=== PATIENT | male | born 1970 | race Caucasian/White ===

== ENCOUNTER → 2024-04-06 11:42 | Outpatient (REF) | payer OTHER, SELFPAY | LOC: RAD 11:42 | PROVIDERS: ATTENDING PHYSICIAN Internal Medicine Cardiovascular Disease; FAMILY PHYSICIAN Family Medicine; REFERRING PHYSICIAN Thoracic Surgery (Cardiothoracic Vascular Surgery) | DX: Z01.810 Encounter for preprocedural cardiovascular examination (principal); I25.10 Atherosclerotic heart disease of native coronary artery without angina pectoris | CPT/HCPCS: 70496; 70498; Q9967 ==

== ENCOUNTER 2024-04-10 04:55 | Inpatient (IN) | payer OTHER, SELFPAY ==
[2024-04-02 12:08] VITALS: BMI 35.7
[2024-04-02 12:55] LABS: % Basophils 0.9 % (0-2); % Eosinophils 4.7 % (0-6); % Immature Granulocytes 0.3 % (0-0.5); % Lymphocytes 18.9 % (20.5-51.1); % Monocytes 8.8 % (1.7-9.3); % Neutrophils 66.4 % (42.2-75.2); Absolute Basophils 0.1 10^3/uL (0-0.2); Absolute Eosinophils 0.4 10^3/uL (0-0.7); Absolute Lymphocytes 1.8 10^3/uL (1.2-3.4); Absolute Monocytes 0.8 10^3/uL (0.1-0.6); Absolute Neutrophils 6.2 10^3/uL (1.4-6.5); Hematocrit 37.1 % (39.0-52.0); Hemoglobin 12.3 g/dL (13.0-18.0); Mean Corp Hgb Conc. 33.2 g/dL (33.0-37.0); Mean Corpuscular Hgb 27.5 pg (27.0-31.0); Mean Platelet Volume 10.2 fL (7.4-10.4); Nucleated Red Blood Cells % 0 % (-); Platelet Count 294 10^3/uL (130-400); Red Blood Cell Count 4.47 10^6/uL (4.70-6.10); Red Cell Dist. Width 13.2 % (11.5-14.5); White Blood Cell Count 9.3 10^3/uL (4.8-10.8)
[2024-04-02 13:11] LABS: ALT (SGPT) 29 U/L (0-50); AST (SGOT) 30 U/L (17-59); Albumin 4.7 g/dl (3.5-5.0); Alkaline Phosphatase 101 U/L (38-126); Blood Urea Nitrogen 30 mg/dl (9-20); Calcium 9.3 mg/dl (8.4-10.2); Carbon Dioxide 30 mmol/L (22-30); Chloride 99 mmol/L (98-107); Direct Bilirubin 0.1 mg/dl (0.0-0.4); Estimated Creatinine Clearance 53 ml/min; Glucose 207 mg/dl (70-99); Potassium 4.5 mmol/L (3.5-5.1); Sodium 141 mmol/L (135-145); Total Bilirubin 0.4 mg/dl (0.2-1.3); Total Protein 7.6 g/dl (6.3-8.2)
[2024-04-02 13:13] LABS: INR 0.95; PT 13.2 Sec (11.4-14.6)
[2024-04-02 13:14] LABS: APTT 31.3 Sec (23.4-35.0)
--- NOTE | 2024-04-02 13:23 | CM ---
Met with Mr. Frye and his son in [facility]. Prior to admission he resides alone in a second floor apartment. He has two steps to enter the home and then twelve steps to get to the second floor apartment. He states prior to admission he was
independent with ambulation and adls. He states he does not have any DME in the home. He states he has a prescription plan and uses [facility]. He states he can call his son and neighbors if he will needs any assistance when he goes home.
The discharge plan is to return home with his son and neighbors to check on him and a home visit by the Transitional Care Nurse when medically stable.
We reviewed pre-op and post-op routines. We reviewed the shower instructions. He has the soap, written instructions and the Cardiothoracic Surgery Educational Booklet. We also reviewed restrictions including sternal precautions and driving
restrictions. We discussed a home visit by the Transitional Care Nurse. He is agreeable to a home visit. The plan is to CABG on Wednesday, April 10, 2024.
[2024-04-02 13:40] LABS: Urine Albumin 1+ (Neg - Trace); Urine Bilirubin Negative (Negative); Urine Character Clear (Clear); Urine Color Yellow; Urine Glucose Trace (Negative); Urine Ketone Negative (Negative); Urine Leukocyte Negative (Negative); Urine Nitrite Negative (Negative); Urine Occult Blood Negative (Negative); Urine Urobilinogen Negative (Neg - 1+)
[2024-04-02 13:59] LABS: Urine Bacteria Few (Negative); Urine Squamous Cell 0-2 /LPF (Few)
[2024-04-02 14:00] LABS: Urine White Cell 0-2 /HPF (0-5)
[2024-04-02 14:27] LABS: Glycohemoglobin (HgbA1c) 7.4 % (4.0-5.6)
[2024-04-10 05:05] VITALS: BP 172/97
[2024-04-10 05:09] VITALS: BP 177/92
[2024-04-10 05:15] LABS: Glucose - Point of Care 218 mg/dl (70-99)
[2024-04-10 05:30] VITALS: BP 177/92; BMI 33.6
[2024-04-10] MEDS: LOPRESSOR 25 MG PO (05:37)
[2024-04-10] MEDS: BACTROBAN 2% OINTMENT 1 APPLIC NASAL ×2 (05:38→20:06)
[2024-04-10] MEDS: MAGNESIUM OXIDE 500 MG PO (05:38)
[2024-04-10] MEDS: PROTONIX 40 MG PO (05:38)
[2024-04-10] MEDS: ANCEF 10 IV ×2 (07:00→13:30)
[2024-04-10 07:25] LABS: ACT+ - POC 98 Seconds (82-134)
[2024-04-10 08:51] LABS: Urine Albumin 2+ (Neg - Trace); Urine Bilirubin Negative (Negative); Urine Character Clear (Clear); Urine Color Yellow; Urine Glucose 1+ (Negative); Urine Ketone Negative (Negative); Urine Leukocyte Negative (Negative); Urine Nitrite Negative (Negative); Urine Occult Blood 2+ (Negative); Urine Urobilinogen Negative (Neg - 1+)
[2024-04-10 09:08] LABS: Urine Hyaline Cast 0-2 /LPF (0-2)
[2024-04-10 09:09] LABS: Urine Bacteria Moderate (Negative)
[2024-04-10 10:41] LABS: ACT+ - POC 637 Seconds (82-134)
[2024-04-10 11:02] LABS: B.E. - POC 2.6 mmol/L; Glucose - POC 223 mg/dl (70-99); HCO3 - POC 27 mmol/L (21-28); Hematocrit - POC 37 % PCV (42-52); Hemodilution- POC Yes; Hemoglobin Calculated - POC 12.7; Ionized Calcium - POC 1.12 mmol/L (1.15-1.33); O2 Saturation %Calculated-POC 99.9 % (94-98); PCO2 - POC 38 mmHg (35-48); PO2 - POC 265 mmHg (83-108); POC Comment PRE; Potassium - POC 3.9 mmol/L (3.5-5.1); Sodium - POC 138 mmol/L (136-145); Specimen Type - POC Arterial; pH - POC 7.46 (7.35-7.45)
[2024-04-10 11:13] LABS: ACT+ - POC 538 Seconds (82-134)
[2024-04-10 11:39] LABS: B.E. - POC 5.3 mmol/L; Glucose - POC 233 mg/dl (70-99); HCO3 - POC 31 mmol/L (21-28); Hematocrit - POC 26 % PCV (42-52); Hemodilution- POC Yes; Hemoglobin Calculated - POC 8.7; Ionized Calcium - POC 1.07 mmol/L (1.15-1.33); O2 Saturation %Calculated-POC 99.9 % (94-98); PCO2 - POC 52 mmHg (35-48); PO2 - POC 322 mmHg (83-108); POC Comment CPB; Sodium - POC 137 mmol/L (136-145); Specimen Type - POC Arterial; pH - POC 7.38 (7.35-7.45)
[2024-04-10 11:49] LABS: Glucose - POC 192 mg/dl (70-99); HCO3 - POC 27 mmol/L (21-28); Hematocrit - POC 27 % PCV (42-52); Hemodilution- POC Yes; Hemoglobin Calculated - POC 9.2; Ionized Calcium - POC 1.05 mmol/L (1.15-1.33); O2 Saturation %Calculated-POC 96.7 % (94-98); PCO2 - POC 38 mmHg (35-48); PO2 - POC 83 mmHg (83-108); POC Comment CPB; Potassium - POC 3.9 mmol/L (3.5-5.1); Sodium - POC 138 mmol/L (136-145); Specimen Type - POC Arterial; pH - POC 7.46 (7.35-7.45)
[2024-04-10 11:50] LABS: ACT+ - POC 523 Seconds (82-134)
[2024-04-10 12:19] LABS: B.E. - POC 2.1 mmol/L; Glucose - POC 194 mg/dl (70-99); HCO3 - POC 27 mmol/L (21-28); Hematocrit - POC 27 % PCV (42-52); Hemodilution- POC Yes; Hemoglobin Calculated - POC 9.1; Ionized Calcium - POC 1.07 mmol/L (1.15-1.33); O2 Saturation %Calculated-POC 99.9 % (94-98); PCO2 - POC 41 mmHg (35-48); PO2 - POC 260 mmHg (83-108); POC Comment CPB; Potassium - POC 4.1 mmol/L (3.5-5.1); Sodium - POC 139 mmol/L (136-145); Specimen Type - POC Arterial; pH - POC 7.42 (7.35-7.45)
--- NOTE | 2024-04-10 12:23 | CM ---
pt in OR today, cm to follow.
[2024-04-10 12:32] LABS: ACT+ - POC 517 Seconds (82-134)
[2024-04-10 12:57] LABS: B.E. - POC 1.4 mmol/L; Glucose - POC 140 mg/dl (70-99); HCO3 - POC 27 mmol/L (21-28); Hematocrit - POC 28 % PCV (42-52); Hemodilution- POC Yes; Hemoglobin Calculated - POC 9.6; Ionized Calcium - POC 1.09 mmol/L (1.15-1.33); O2 Saturation %Calculated-POC 98.2 % (94-98); PCO2 - POC 44 mmHg (35-48); PO2 - POC 110 mmHg (83-108); POC Comment WARM; Potassium - POC 4.1 mmol/L (3.5-5.1); Sodium - POC 140 mmol/L (136-145); Specimen Type - POC Arterial; pH - POC 7.39 (7.35-7.45)
[2024-04-10 13:12] LABS: ACT+ - POC 470 Seconds (82-134)
[2024-04-10 13:30] LABS: B.E. - POC 1.3 mmol/L; Glucose - POC 114 mg/dl (70-99); HCO3 - POC 25 mmol/L (21-28); Hematocrit - POC 26 % PCV (42-52); Hemodilution- POC Yes; Hemoglobin Calculated - POC 8.7; Ionized Calcium - POC 1.04 mmol/L (1.15-1.33); PCO2 - POC 37 mmHg (35-48); PO2 - POC 504 mmHg (83-108); POC Comment CPB; Potassium - POC 3.8 mmol/L (3.5-5.1); Sodium - POC 140 mmol/L (136-145); Specimen Type - POC Arterial; pH - POC 7.44 (7.35-7.45)
[2024-04-10 13:33] LABS: ACT+ - POC 148 Seconds (82-134)
[2024-04-10 13:56] LABS: ACT+ - POC 115 Seconds (82-134)
--- NOTE | 2024-04-10 14:12 | W.CVOR.SURPR ---
CVOR Surgeon Immed Pre Op
-
I have examined this patient prior to performance of the scheduled procedure.
The patient's condition is unchanged from the time of the dictated/written History and
Physical and the patient is able to undergo the scheduled procedure.
--- NOTE | 2024-04-10 14:13 | W.IMMPOSTOP ---
Addendum entered and electronically signed by Erich Greene MD 04/10/24 15:34:
[id number]
Original Note:
Surgical Immed Post Op Note
-
CARDIAC SURGERY OPERATIVE NOTE:
Preoperative Dx:
MVCAD
Postoperative Dx:
Same
Procedures:
1) Median sternotomy
2) Endoscopic harvest/prep of L RA
3) Endoscopic harvest/prep of RLE GSV
4) CABG x 4 (MIGUEL to LAD, GSV to D, RA to OM, GSV to PDA)
Surgeon:
Erich Greene M.D.
Assistants:
Desire RaoA.-CJoycelyn; endoscopic harvest/prep of L RA; international first officer throughout
Denilson Sarmiento.-CJoycelyn; endoscopic harvest/prep of RLE GSV
Noah Del Angel PJoycelynA.-C.; closure ([id number])
Anesthesia:
Deon Huertas M.D. and Gabriel Back, C.R.N.A.
Perfusion:
Mauro GonzalesCJoycelynP.; XC: 83min, CPB: 135min
Findings:
MIGUEL was very healthy conduit w/ extremely brisk blood flow; ELD 3.00mm
GSV was healthy conduit w/ normal reeves; ELD 3.50mm
RA was good conduit w/ minor atheromatous changes in reeves; ELD 3.25mm
LAD was visible on the epicardial surface, ELD 2.5mm at midpoint anastomosis; brisk flow w/ release of MIGUEL bulldog clamp
D was visible on the epicardial surface, ELD 2.5mm
OM was visible on the epicardial surface, scattered calcifications throughout, ELD 2.5mm
PDA was visible on the epicardial surface, ELD 2.5mm
Good flow in all grafts
Ascending aorta de-aired prior to removal of partial clamp w/ back bleeding from RA to OM and GSV to D
LUIS: LVEF 60-65%, no RWMA, RV normal, valves grossly normal
Implants:
CT x 4 (B/L pleural, inferior mediastinal, superior mediastinal)
Sternal wires x 7
Sternal 'X' plate w/ 4 - 14mm and 4 - 16mm screws
Sternal 'Square' plate w/ 4 - 12mm screws
Transfusion:
None
Complications:
None
Condition:
57 isoelectric sinus (0.3/-0.2); 101/59; CVP 9; 100%
GTTS: levophed 2, insulin 1, precedex 0.5, cardizem 2
Stable/guarded to CVICU
[2024-04-10 14:48] LABS: Glucose - Point of Care 95 mg/dl (70-99)
[2024-04-10 14:51] VITALS: BP 97/74
[2024-04-10 15:00] LABS: B.E. -2.5 mmol/L; HCO3 23.2 mmol/L (21-28); Ionized Calcium 1.19 mMOL/L (1.15-1.33); O2 Saturation % 99.7 % (94-98); PCO2 43 mmHg (35-48); PO2 224 mmHg (83-108); Potassium 3.6 mMOL/L (3.5-5.1); Sodium 137 mMOL/L (136-145); pH 7.34 (7.35-7.45)
[2024-04-10 15:01] LABS: Hematocrit 28.6 % (39.0-52.0); Hemoglobin 9.7 g/dL (13.0-18.0); Platelet Count 189 10^3/uL (130-400)
--- NOTE | 2024-04-10 15:15 | CON.INTV ---
Consultation
Consultation Request
Date/Time Consultation Requested: 04/10/2024
Date/Time Consultation Performed: 04/10/2024
Requesting Provider: Dr. Greene
Performing Provider: Dr. Abe Conte
Reason for Consultation: Status post coronary artery bypass
Medical History
-
History of Present Illness:
53-year-old man with past medical history significant for hypertension, diabetes, peripheral vascular disease electively admitted for revascularization.
Underwent coronary artery bypass on 04/10/2024 without complication.
Currently in the critical care unit, intubated, on mechanical ventilation, sedated.
ECW records reviewed.
Chest tube in place without significant air leak or drainage.
Comfortable on current mechanical ventilation settings
Past Medical History
Past Medical History: Other (See assessment and plan)
Social History
Tobacco: Former Smoker (Quit 10 years ago)
Alcohol: Other (Rare)
Personal: Single
Living: Alone
Family History
Family History: Unable to Obtain
Allergies / Home Medications
Allergies
Allergy/AdvReac Type Severity Reaction Status Date / Time
erythromycin base Allergy Rash Verified 03/31/24 10:05
Home Medications
�Medication �Instructions �Recorded �Confirmed �Last Taken �Type
Medical Cannibus 1 dose PO PRN PRN pain 03/31/24 04/10/24 04/09/24 12:00 History
acebutolol 400 mg capsule 400 mg PO BID 03/31/24 04/10/24 04/09/24 08:00 History
aspirin 81 mg capsule 81 mg PO DAILY 03/31/24 04/10/24 04/09/24 08:00 History
chlorthalidone 25 mg tablet 25 mg PO DAILY 03/31/24 04/10/24 04/09/24 08:00 History
clonidine HCl 0.1 mg tablet 0.1 mg PO DAILY 03/31/24 04/10/24 04/09/24 08:00 History
dulaglutide 3 mg/0.5 mL 3 mg SC QWEEK 03/31/24 04/10/24 03/27/24 History
subcutaneous pen injector
(Trulicity)
hydroxyzine HCl 50 mg tablet 50 mg PO HS PRN sleep 03/31/24 04/10/24 04/09/24 21:00 History
minoxidil 10 mg tablet 15 mg PO BID 03/31/24 04/10/24 04/02/24 History
rosuvastatin 40 mg tablet 40 mg PO DAILY 03/31/24 04/10/24 04/09/24 21:00 History
Review of Systems
-
Unable to Obtain full review of systems at this time due to: Patient Intubation
Vitals / Labs / Diagnostic Testing
Vital Signs
Temp Pulse Resp BP Pulse Ox
97.8 F 55 18 177/92 99
04/10/24 05:30 04/10/24 05:37 04/10/24 05:30 04/10/24 05:37 04/10/24 05:30
Laboratory Results
04/10/24
14:42
pH 7.34 L
pCO2 43
pO2 224 H
HCO3 23.2
O2 Delivery Level
Diagnostic Testing:
Physical Exam
-
HEENT: Normocephalic and Other (ET tube in place without secretion)
Cardiovascular: S1/S2
Respiratory: Non-Labored Respirations and Other ( Chest tube in place without air leak or significant drainage.)
GI: Soft and Non Distended
Neurology: Other (Sedated, on mechanical ventilation.)
Skin: Warm
Assessment
-
Status post coronary artery bypass 04/10/[address] Greene
Postoperative mechanical ventilation
Postoperative anemia
Conditions present prior admission:
Renal artery atherosclerosis
Aortic aneurysm
Hypertension
Chronic kidney disease
Carotid artery disease
Coronary artery disease
Diabetes
Former smoker quit 10 years ago
Assessment and plan:
His doing well postop-currently on mechanical ventilation and appears comfortable.
ABG reviewed: Adequate oxygenation and ventilation.
Continue SIMV mode with no change
Spontaneous breathing trial per protocol once sedation wears off.
Anemia noted-no evidence of acute bleeding
Follow H&H serially
Hemodynamics -acceptable on low-dose Levophed. Wean off as able.
Patient with chronic kidney disease, follow renal function
Follow urinary output-currently adequate.
Continue hemodynamic support
Chest tube with no excessive drainage-no air leak.
Chest x-ray reviewed: With no pneumothorax or fluid collections. Low lung volumes. Pulmonary vascular congestion
Remain nothing by mouth
Head of the bed elevation
Glycemic control per protocol
DVT prophylaxis when safe from the surgical perspective.
Critical care statement: A total of 32 minutes of critical care time was provided for this patient today. This includes management of unstable vital signs, evaluation of the patient at bedside, reviewing the patient's pertinent medical records
including ventilator settings, arterial blood gases, radiographs, microbiology, laboratory evaluations and discussion with primary team, critical care nursing, and respiratory therapy.
[2024-04-10 15:16] LABS: APTT 28.9 Sec (23.4-35.0); INR 1.45; PT 17.9 Sec (11.4-14.6)
[2024-04-10 15:19] LABS: Blood Urea Nitrogen 26 mg/dl (9-20); Estimated Creatinine Clearance 59 ml/min; Glucose 98 mg/dl (70-99); Magnesium 2.8 mg/dl (1.6-2.3)
--- NOTE | 2024-04-10 15:30 | PTCARENOTE ---
Pt received from CVOR at 1440; Sedated and intubated; NSR rhythm on monitor; VSS; DP and radial pulses present; Lungs diminished at bases; ETT size 8 positioned and secured at 23 cm right lip; Ventilator settings SIMV 14/500/5/5 FiO2 60%; CTx34 to
-20 cm wall suction draining bloody drainage - no air leak, tidaling, or crepitus noted; Hypoactive BS; Chavez catheter in place draining clear, yellow urine; Sternal incision glued, approximated, and OSTOMY NURSE, Right radial incision site glued,
approximated, and brooke wrapped, right leg incision glued, approximated, and brooke wrapped; Right A-line in place, RIJ Cordis - all lines zeroed and leveled; #18 PIV present in right forearm; Levo/insulin/precedex/Cardizem infusing - see nursing
flowsheets for further details; see nursing documentation for further details.
[2024-04-10 16:00] LABS: Glucose - Point of Care 149 mg/dl (70-99)
[2024-04-10 16:25] LABS: B.E. -2.3 mmol/L; HCO3 23.2 mmol/L (21-28); PCO2 42 mmHg (35-48); PO2 163 mmHg (83-108); pH 7.35 (7.35-7.45)
--- NOTE | 2024-04-10 16:30 | PTCARENOTE ---
1630 extubated to 6L nc
[2024-04-10] MEDS: DILAUDID 0.5 MG IV (16:39)
--- NOTE | 2024-04-10 16:43 | W.PN.CD ---
Today's Communication / Plan
-
Wean vasopressors as able
Continue postop day #1 protocol.
Impression / Plan
-
CAD status post X 4 (L TRICIA to LAD, G SVG to diagonal, RA 2 OM, GSV to PDA) POD #0
On a very low-dose of Levophed and insulin drip. Small dose of IV diltiazem.
Continue to wean vasopressors as able.
OMT when able
Hypertension: Chronic, resume agents when able.
Renal artery arthrosclerosis chronic
Diabetes chronic
Obesity: On Trulicity
Subjective:
Eyes open to name but intubated and sedated
IntraOp LUIS 04/10/2024 CONCLUSIONS
Normal left ventricular systolic function with no wall motion abnormalities.
LVEF 60-65%.
Normal right ventricular systolic function.
The cardiac valves are grossly normal in structure and function.
Grade III atheromatous disease of the aortic arch and descending thoracic
aorta.
Physical Exam
Vital Signs/Labs
Vital Signs
Temp Pulse Resp BP Pulse Ox
97.4 F 68 14 97/74 100
04/10/24 15:00 04/10/24 16:15 04/10/24 16:15 04/10/24 14:51 04/10/24 16:00
04/09/24 04/10/24 04/11/24
06:59 06:59 06:59
Actual Weight 103 kg
04/10/24 14:42
PT 17.9 Sec (11.4-14.6) H 04/10/24 14:42
INR 1.45 04/10/24 14:42
APTT 28.9 Sec (23.4-35.0) 04/10/24 14:42
Magnesium 2.8 mg/dl (1.6-2.3) H 04/10/24 14:42
Physical Exam
Constitutional: No acute distress
Cardiovascular: Rhythm & rate is regular, Systolic murmur absent and Diastolic murmur absent
Respiratory: Respiratory effort normal and Other (Ventilator sounds)
GI: Soft
Data Reviewed
-
Date of Service: April 10, 2024
EKG: Tracing Personally Visualized and interpreted (Sinus bradycardia)
[2024-04-10] MEDS: ZOFRAN 4 MG IV (17:08)
[2024-04-10 17:15] VITALS: BP 70/57
[2024-04-10] MEDS: OFIRMEV 100 IV (17:28)
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
[2024-04-10 17:32] LABS: Glucose - Point of Care 114 mg/dl (70-99)
[2024-04-10] MEDS: NOVOLOG FLEXPEN SC ×2 (18:29→18:30)
[2024-04-10] MEDS: NEURONTIN PO (18:29)
[2024-04-10] MEDS: NEURONTIN 100 MG PO ×2 (18:29→22:29)
[2024-04-10] MEDS: NSS 500 IV (18:30)
[2024-04-10] MEDS: TYLENOL PO (18:31)
[2024-04-10 18:40] LABS: Glucose - Point of Care 87 mg/dl (70-99)
[2024-04-10 19:00] VITALS: BP_SYST 91
[2024-04-10 19:26] LABS: Hematocrit 29.2 % (39.0-52.0); Hemoglobin 9.9 g/dL (13.0-18.0); Platelet Count 222 10^3/uL (130-400)
[2024-04-10 19:32] LABS: Glucose - Point of Care 87 mg/dl (70-99)
[2024-04-10] MEDS: LOW STRENGTH ASPIRIN 81 MG PO (19:45)
[2024-04-10] MEDS: SENOKOT-S 1 TABLET PO (19:46)
[2024-04-10] MEDS: PACERONE 200 MG PO ×2 (19:47→22:29)
[2024-04-10 19:50] LABS: ALT (SGPT) 31 U/L (0-50); AST (SGOT) 63 U/L (17-59); Albumin 3.7 g/dl (3.5-5.0); Alkaline Phosphatase 89 U/L (38-126); Blood Urea Nitrogen 28 mg/dl (9-20); Calcium 8.6 mg/dl (8.4-10.2); Carbon Dioxide 27 mmol/L (22-30); Chloride 102 mmol/L (98-107); Estimated Creatinine Clearance 50 ml/min; Glucose 109 mg/dl (70-99); Potassium 4.5 mmol/L (3.5-5.1); Sodium 136 mmol/L (135-145); Total Bilirubin 0.7 mg/dl (0.2-1.3); Total Protein 6.1 g/dl (6.3-8.2); eGFR 38.93
[2024-04-10] MEDS: ROXICODONE 5 MG PO (19:53)
--- NOTE | 2024-04-10 21:32 | PTCARENOTE ---
PT on RA, see worklist for detailed assessment
[2024-04-10 21:39] LABS: Glucose - Point of Care 125 mg/dl (70-99)
[2024-04-10] MEDS: CALCIUM GLUCONATE 100 IV (21:40)
[2024-04-10] MEDS: ANCEF 5 IV (21:57)
[2024-04-10] MEDS: CRESTOR PO (22:33)
[2024-04-11] VITALS (22 sets, daily range): BP systolic 66–140; BP diastolic 35–77; PULSE 57; O2SAT 96–99; BMI 35.0; BMI 35.1
[2024-04-11] MEDS: LEVOPHED 250 IV
[2024-04-11] MEDS: TYLENOL PO
[2024-04-11 00:04] LABS: Glucose - Point of Care 109 mg/dl (70-99)
--- NOTE | 2024-04-11 00:30 | PTCARENOTE ---
Patient received resting in bed. Patient A+A+Ox3. No neurological deficits noted. No c/o headache, dizziness or lightheadedness. No s/s of respiratory distress. No c/o SOB. O2 2L via NC. SpO2 97%. Four chest tubes - Mediastinal x2 and Right
and Left Pleural - Intact and patent - 10 ml red drainage - No air leak. Chest tube dressing intact. Sinus Rhythm. Heart rate 60's. No c/o chest pain, pressure or discomfort. Levophed gtt and Cardizem gtt. Hypoactive bowel sounds. No BM. No
c/o nausea. No vomiting. Chavez catheter - Temperature sensing - Light latha urine - Outputs as documented. Positive Doppler pulses - Dorsalis pedis, Posterior tibial, Left Ulnar. Left upper extremity - Coban Sudhakar Wrap - Positive circulation,
sensation and mobility to left upper extremity. Right I.J. Cordis with [place] catheter. CVP 8. Right radial arterial line. Sternal dressing intact. Right groin puncture site intact. Right lower extremity with Coban Sudhakar Wrap. Assessment as
documented.
[2024-04-11] MEDS: DILAUDID 0.25 MG IV (00:57)
[2024-04-11 01:55] LABS: Glucose - Point of Care 94 mg/dl (70-99)
[2024-04-11] MEDS: DILAUDID 0.5 MG IV ×2 (03:29→09:37)
[2024-04-11 03:49] LABS: Glucose - Point of Care 117 mg/dl (70-99)
[2024-04-11 04:19] LABS: Hematocrit 28.4 % (39.0-52.0); Hemoglobin 9.5 g/dL (13.0-18.0); Mean Corp Hgb Conc. 33.5 g/dL (33.0-37.0); Mean Corpuscular Hgb 27.6 pg (27.0-31.0); Mean Corpuscular Volume 82.6 fL (80.0-94.0); Platelet Count 214 10^3/uL (130-400); Red Blood Cell Count 3.44 10^6/uL (4.70-6.10); Red Cell Dist. Width 13.7 % (11.5-14.5); White Blood Cell Count 15.7 10^3/uL (4.8-10.8)
--- NOTE | 2024-04-11 04:30 | PTCARENOTE ---
Patient A+A+Ox3. No neurological deficits noted. IV Dilaudid 0.5mg for pain management with positive relief provided. AM lab work collected and sent. EKG completed. Patient given CHG bath. Chest tube dressing changed. Chavez catheter care
provided. A-Line and CVP zeroed and calibrated. CVP 7. Assessment/Interventions as documented.
[2024-04-11 05:10] LABS: Blood Urea Nitrogen 30 mg/dl (9-20); Calcium 8.6 mg/dl (8.4-10.2); Carbon Dioxide 24 mmol/L (22-30); Chloride 104 mmol/L (98-107); Estimated Creatinine Clearance 48 ml/min; Glucose 104 mg/dl (70-99); Magnesium 2.4 mg/dl (1.6-2.3); Potassium 4.6 mmol/L (3.5-5.1); Sodium 138 mmol/L (135-145); eGFR 36.72
[2024-04-11] MEDS: TYLENOL 1000 MG PO ×3 (05:57→21:31)
[2024-04-11] MEDS: ANCEF 5 IV ×2 (05:57→14:10)
[2024-04-11 06:05] LABS: Glucose - Point of Care 98 mg/dl (70-99)
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
--- NOTE | 2024-04-11 06:45 | PTCARENOTE ---
Patient A+A+Ox3. No neurological deficits noted. Patient's slick catheter and right radial arterial line discontinued. Assessment/Interventions as documented.
[2024-04-11] MEDS: BACTROBAN 2% OINTMENT 1 APPLIC NASAL ×2 (08:19→21:32)
[2024-04-11] MEDS: NSS IV (08:20)
[2024-04-11 08:23] LABS: Glucose - Point of Care 120 mg/dl (70-99)
[2024-04-11] MEDS: NORVASC PO (08:27)
--- NOTE | 2024-04-11 09:09 | PTCARENOTE ---
walked halls with patient out 3 rooms down and back. lightheaded when he got back. hypotensive sys 70s. PRESS SET UP notified and midodrine ordered.
[2024-04-11] MEDS: LIDOCAINE 4% PATCH 1 PATCH TOPICAL (09:25)
[2024-04-11] MEDS: ProAmatine 5 MG PO ×2 (09:26→16:09)
[2024-04-11] MEDS: PROTONIX 40 MG PO (09:26)
[2024-04-11] MEDS: VITAMIN C 500 MG PO (09:27)
[2024-04-11] MEDS: NEURONTIN 100 MG PO ×3 (09:27→21:31)
[2024-04-11] MEDS: SENOKOT-S 1 TABLET PO ×2 (09:27→21:31)
[2024-04-11] MEDS: LOW STRENGTH ASPIRIN 81 MG PO (09:27)
[2024-04-11] MEDS: CRESTOR 40 MG PO (09:27)
[2024-04-11] MEDS: FEOSOL 325 MG PO (09:28)
[2024-04-11] MEDS: PLAVIX 75 MG PO (09:28)
--- NOTE | 2024-04-11 10:01 | W.PN.ANS.POP ---
Anesthesia Post Operative
- Anesthesia Post Op Note
Vital Signs Stable-See Nursing Note: Yes
Airway Patent: Yes
Adequate Pain Control: Yes
Change in Mental Status: No
Current Postoperative Nausea & Vomiting: No
Anesthesia Complications: No
General Anesthetic Recall: No
Unplanned Admission: No
Post Op Hydration Adequate: Yes
[2024-04-11] MEDS: NOVOLOG FLEXPEN SC ×2 (10:07→14:00)
[2024-04-11] MEDS: ROXICODONE 5 MG PO ×2 (10:48→18:37)
[2024-04-11 10:51] LABS: Glucose - Point of Care 151 mg/dl (70-99)
--- NOTE | 2024-04-11 12:10 | PTCARENOTE ---
VSS. SB. remains light headed but reports it to be improving. weaned to RA. Cardizem off per RESTAURANT CREW orders.
--- NOTE | 2024-04-11 12:29 | W.PN.INTV ---
Today's Communication / Plan
Recommendations
Continue postoperative care
Follow chest tube output
Follow hemoglobin
Increase activity as able
Continue cardiac management
Sign off
Assessment
-
Status post coronary artery bypass 04/10/[address] Greene
Postoperative mechanical ventilation
Postoperative anemia
Conditions present prior admission:
Renal artery atherosclerosis
Aortic aneurysm
Hypertension
Chronic kidney disease
Carotid artery disease
Coronary artery disease
Diabetes
Former smoker quit 10 years ago
Assessment and plan:
Postoperative day 1
Extubated successfully
Encourage incentive spirometer
Increase activity per protocol
Analgesia with as needed narcotics-monitor respiratory status closely.
Anemia noted-no evidence of acute bleeding
Follow H&H serially
Hemodynamics -stable. Off vasoactive drugs
Creatinine relatively stable-patient has underlying chronic kidney disease.
Follow urinary output
Electrolytes are
Chest tube with no excessive drainage-no air leak.
Chest x-ray reviewed: With no pneumothorax or fluid collections.
Advance diet as tolerated
Head of the bed elevation
Glycemic control per protocol
DVT prophylaxis when safe from the surgical perspective.
Patient has been transferred to telemetry. Critical care team will sign off.
Subjective Dataa
Subjective Data
Date of Service:
Date of Service: April 11, 2024
Chief Complaint: Promotions Representative Follow Up (Status post coronary artery bypass)
Subjective:
No overnight events
Extubated successfully
Denies any particular complaints
His pain is relatively well-controlled
Review of Systems
General: Fever (n)
Cardiopulmonary: Dyspnea (none at rest)
GI: Abdominal Pain (n) and Nausea (n)
Objective Data
Data Reviewed
Vital Signs / I&O / Oxygen:
Vital Signs
Temp Pulse Resp BP Pulse Ox
100.3 F 58 21 104/55 95
12/14/24 08:00 04/11/24 08:27 04/11/24 08:15 04/11/24 09:26 04/11/24 08:24
Intake and Output
04/10/24 04/11/24 04/12/24
06:59 06:59 06:59
Intake Total 301.6 / 301.6 66.3 / 66.3
Output Total 1185 / 1185 235 / 235
Balance -883.4 / -883.4 -168.7 / -168.7
SaO2 95
Nasal Cannula flow liters per 2
minute
Physical Exam
General: Comfortable
HEENT: Normocephalic
Cardiovascular: S1-S2
Respiratory: Clear and Chest Tube (No air leak or excessive drainage)
GI: Soft and Non Distended
Neurology: Awake, Alert, Oriented and No Motor Deficits
Skin: Good Color
Labs/Micro/Reports
Lab Data
04/11/24 03:45
04/11/24 03:45
Laboratory Results
04/10/24 04/10/24
14:42 16:16
PT 17.9 H
INR 1.45
APTT 28.9
pH 7.34 L 7.35
pCO2 43 42
pO2 224 H 163 H
HCO3 23.2 23.2
O2 Delivery Level
Microbiology
04/10/24 07:30 Urine Urine Culture - Final
NO GROWTH
[2024-04-11 13:53] LABS: Glucose - Point of Care 114 mg/dl (70-99)
[2024-04-11] MEDS: ProAmatine PO (13:59)
[2024-04-11 16:13] LABS: Glucose - Point of Care 155 mg/dl (70-99)
--- NOTE | 2024-04-11 17:10 | PTCARENOTE ---
see mar for pain med dosing. Tolerated dinner. due to void post catheter removal. will continue to monitor.
[2024-04-11 18:24] LABS: Glucose - Point of Care 176 mg/dl (70-99)
[2024-04-11] MEDS: NOVOLOG FLEXPEN 4 UNITS SC (18:33)
[2024-04-11] MEDS: NOVOLIN R INSULIN INFUSION 100 IV (19:18)
[2024-04-11 19:24] LABS: Glucose - Point of Care 204 mg/dl (70-99)
--- NOTE | 2024-04-11 20:00 | PTCARENOTE ---
Assumed care of patient at 1900. Patient found OOB in chair at time of assessment. Patient is AOx4, follows commands appropriately moves all extremities. Lung sounds are clear and equal bilaterally saO2 97% on RA. Heart sounds are audible, patient
is SR/SB, pulses are present with doppler including L ulnar. Patient has active BS and is DTV now. Patient has sternal incision with aquacell dressing that is CDI, L wrist incision approx with surg adhesive SHIRLEY, and LLE incision approx with surg
adhesive MASTIC WORKER. Patient has R IJ Cordis and R FA PIV. Patient is receiving Cordis KVO and insulin gtt. VSS. Call jacinto within reach.
[2024-04-11 20:40] LABS: Glucose - Point of Care 178 mg/dl (70-99)
[2024-04-11 21:45] LABS: Glucose - Point of Care 155 mg/dl (70-99)
[2024-04-11 22:52] LABS: Glucose - Point of Care 99 mg/dl (70-99)
[2024-04-12] VITALS (10 sets, daily range): BP systolic 105–132; BP diastolic 58–91; BMI 35.2
--- NOTE | 2024-04-12 | PTCARENOTE ---
Patient with successful void in toilet while attempting BM only flatus passed. While ambulating back to bathroom patient became diaphoretic and reported lightheadedness. Upon return to bed vital signs stable and blood sugar WNL. CT PA notified.
Patient reports feeling better after sitting down a few moments. Call jacinto within reach.
[2024-04-12 00:18] LABS: Glucose - Point of Care 99 mg/dl (70-99)
[2024-04-12 00:24] LABS: Glucose - Point of Care 89 mg/dl (70-99)
[2024-04-12 03:03] LABS: Glucose - Point of Care 109 mg/dl (70-99)
[2024-04-12] MEDS: ROXICODONE 5 MG PO ×2 (03:40→22:18)
[2024-04-12 03:50] LABS: Hemoglobin 9.2 g/dL (13.0-18.0); Mean Corp Hgb Conc. 32.9 g/dL (33.0-37.0); Mean Corpuscular Hgb 27.8 pg (27.0-31.0); Mean Corpuscular Volume 84.6 fL (80.0-94.0); Platelet Count 182 10^3/uL (130-400); Red Blood Cell Count 3.31 10^6/uL (4.70-6.10); Red Cell Dist. Width 14.1 % (11.5-14.5); White Blood Cell Count 16.2 10^3/uL (4.8-10.8)
[2024-04-12 03:51] LABS: Blood Urea Nitrogen 42 mg/dl (9-20); Calcium 8.2 mg/dl (8.4-10.2); Carbon Dioxide 23 mmol/L (22-30); Chloride 100 mmol/L (98-107); Estimated Creatinine Clearance 41 ml/min; Glucose 111 mg/dl (70-99); Magnesium 2.4 mg/dl (1.6-2.3); Sodium 133 mmol/L (135-145); eGFR 29.79
--- NOTE | 2024-04-12 04:34 | PTCARENOTE ---
Patient reassessed. VSS. Patient given 5 Elsie for 6/10 sternum pain 2/2 incision. AM labs obtained. AM hygiene care provided. Patient successful void 500mL.
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
[2024-04-12 05:07] LABS: Glucose - Point of Care 146 mg/dl (70-99)
[2024-04-12] MEDS: TYLENOL 1000 MG PO ×3 (06:47→22:18)
--- NOTE | 2024-04-12 07:00 | PTCARENOTE ---
Bedside walking rounds report received. Neuro intact. Awake alert and oriented x 3 sitting oob in chair. Room air. NSR. Normotensive sitting and standing. Plan: hydrate iv fluid LR at 50ml/hr/dc all chest tubes this am per Dr. Greene. (medsx2/right
and left pleural). See f;lowrecord for remaining assessments.
[2024-04-12 07:28] LABS: Glucose - Point of Care 103 mg/dl (70-99)
[2024-04-12] MEDS: LR 1000 IV (07:54)
[2024-04-12] MEDS: PROTONIX 40 MG PO (07:57)
[2024-04-12] MEDS: FEOSOL 325 MG PO (07:57)
[2024-04-12] MEDS: BACTROBAN 2% OINTMENT 1 APPLIC NASAL ×2 (07:57→22:16)
[2024-04-12] MEDS: CRESTOR 40 MG PO (07:58)
[2024-04-12] MEDS: NORVASC 2.5 MG PO (07:58)
[2024-04-12] MEDS: PLAVIX 75 MG PO (07:58)
[2024-04-12] MEDS: SENOKOT-S 1 TABLET PO ×2 (07:58→22:17)
[2024-04-12] MEDS: ProAmatine 5 MG PO ×3 (07:58→17:22)
[2024-04-12] MEDS: NEURONTIN 100 MG PO ×3 (07:58→22:17)
[2024-04-12] MEDS: VITAMIN C 500 MG PO (07:58)
[2024-04-12] MEDS: LOW STRENGTH ASPIRIN 81 MG PO (07:58)
[2024-04-12] MEDS: LIDOCAINE 4% PATCH 1 PATCH TOPICAL (07:59)
[2024-04-12] MEDS: NOVOLOG FLEXPEN 4 UNITS SC ×2 (10:05→13:24)
[2024-04-12 10:09] LABS: Glucose - Point of Care 195 mg/dl (70-99)
--- NOTE | 2024-04-12 10:30 | PTCARENOTE ---
Chest tubes x 4 removed by E [employer] WEB DEVELOPER with assist of CT surg SENIOR SOFTWARE DEVELOPMENT ENGINEER Monica for tying all 4 sutures purse string style. Patient tolerated procedure well. Remain on room air. Assisted oob to chair.
[2024-04-12 11:49] LABS: Glucose - Point of Care 182 mg/dl (70-99)
[2024-04-12 13:30] LABS: Glucose - Point of Care 109 mg/dl (70-99)
[2024-04-12 13:52] LABS: Blood Urea Nitrogen 39 mg/dl (9-20); Calcium 8.3 mg/dl (8.4-10.2); Carbon Dioxide 28 mmol/L (22-30); Chloride 101 mmol/L (98-107); Estimated Creatinine Clearance 49 ml/min; Glucose 85 mg/dl (70-99); Potassium 3.6 mmol/L (3.5-5.1); Sodium 137 mmol/L (135-145); eGFR 36.72
[2024-04-12] MEDS: NSS IV (14:25)
--- NOTE | 2024-04-12 15:00 | PTCARENOTE ---
Creat trending down. Now voiding large amounts clear latha urine.
[2024-04-12 15:18] LABS: Glucose - Point of Care 196 mg/dl (70-99)
--- NOTE | 2024-04-12 15:28 | SUR.OPER ---
Ambulated approx [address]: see post ativity vital sigleena.
--- NOTE | 2024-04-12 15:35 | PTCARENOTE ---
Ambulated approx [address]: see post activity vital signs stable. Room air.
[2024-04-12] MEDS: NOVOLOG FLEXPEN-MODERATE RESISTANCE 5 UNITS SC (17:27)
[2024-04-12 17:31] LABS: Glucose - Point of Care 260 mg/dl (70-99)
--- NOTE | 2024-04-12 21:30 | PTCARENOTE ---
Report received from JIMMY Holland. Pt assessed, VS done. Siting in recliner chair. Awake, alert, oriented x 4. Speech clear. Moves all extremities x 4. Pt on room air in chair. Sat 97%. BBS present. Diminished to B bases. In bed, Sats are 95%. O2 at 1
L/NC applied. Audible heart tones. Pt in SR. Normotensive. Lopressor 12.5 mg given as scheduled. For pulse and wound assessments, see flowsheets. Belly soft, nontender. Hypoactive bowel sounds x 4. Voiding clear, yellow urine in urinal. Ongoing plan
of care.
[2024-04-12] MEDS: LOPRESSOR 12.5 MG PO (22:17)
--- NOTE | 2024-04-12 22:30 | PTCARENOTE ---
Evening blood glucose 338. Called KATYA Alva to notify. Orders given for Novolog 6 u SC. Given-see JUN. Roxicodone 5 mg po given at 2218.
[2024-04-12 22:31] LABS: Glucose - Point of Care 338 mg/dl (70-99)
[2024-04-12] MEDS: NOVOLOG FLEXPEN 6 UNITS SC (22:57)
[2024-04-13] VITALS (9 sets, daily range): BP systolic 114–145; BP diastolic 65–86; PULSE 65; O2SAT 99; BMI 35.1; BMI 34.9
[2024-04-13 00:59] LABS: Glucose - Point of Care 206 mg/dl (70-99)
--- NOTE | 2024-04-13 01:00 | PTCARENOTE ---
Blood glucose 206. Pt voided 400 mls clear, yellow urine.
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
[2024-04-13] MEDS: LR 1000 IV (04:38)
--- NOTE | 2024-04-13 04:45 | PTCARENOTE ---
Labs drawn and sent. Portable CXR done. VS done and recorded.
[2024-04-13 05:03] LABS: Glucose - Point of Care 190 mg/dl (70-99)
[2024-04-13 05:14] LABS: Hematocrit 27.5 % (39.0-52.0); Hemoglobin 9.1 g/dL (13.0-18.0); Mean Corp Hgb Conc. 33.1 g/dL (33.0-37.0); Mean Corpuscular Hgb 27.7 pg (27.0-31.0); Mean Corpuscular Volume 83.6 fL (80.0-94.0); Mean Platelet Volume 11.1 fL (7.4-10.4); Platelet Count 164 10^3/uL (130-400); Red Blood Cell Count 3.29 10^6/uL (4.70-6.10); White Blood Cell Count 9.8 10^3/uL (4.8-10.8)
[2024-04-13 05:29] LABS: Blood Urea Nitrogen 31 mg/dl (9-20); Carbon Dioxide 30 mmol/L (22-30); Chloride 102 mmol/L (98-107); Estimated Creatinine Clearance 64 ml/min; Glucose 163 mg/dl (70-99); Magnesium 2.2 mg/dl (1.6-2.3); Potassium 3.8 mmol/L (3.5-5.1); Sodium 138 mmol/L (135-145); eGFR 50.88
[2024-04-13 06:18] LABS: Glucose - POC 129 mg/dl (70-99); HCO3 - POC 26 mmol/L (21-28); Hematocrit - POC 27 % PCV (42-52); Hemodilution- POC Yes; Hemoglobin Calculated - POC 9.3; Ionized Calcium - POC 1.26 mmol/L (1.15-1.33); O2 Saturation %Calculated-POC 99.9 % (94-98); PCO2 - POC 38 mmHg (35-48); PO2 - POC 258 mmHg (83-108); POC Comment POST; Potassium - POC 3.7 mmol/L (3.5-5.1); Sodium - POC 140 mmol/L (136-145); Specimen Type - POC Arterial; pH - POC 7.45 (7.35-7.45)
[2024-04-13] MEDS: KCL 20 MEQ PO ×2 (06:39→09:23)
[2024-04-13] MEDS: ROXICODONE 5 MG PO ×2 (06:39→19:45)
[2024-04-13] MEDS: TYLENOL 1000 MG PO ×2 (06:39→21:27)
--- NOTE | 2024-04-13 07:15 | PTCARENOTE ---
Pt helped to recliner chair this am. KCL 20 meQ po given per order. Roxicodone 5 mg given for 5/10 sternal pain. Report to JIMMY Larson.
[2024-04-13 08:17] LABS: Glucose - Point of Care 278 mg/dl (70-99)
[2024-04-13] MEDS: PROTONIX 40 MG PO (09:23)
[2024-04-13] MEDS: LASIX 40 MG IV (09:23)
[2024-04-13] MEDS: LIDOCAINE 4% PATCH 1 PATCH TOPICAL (09:23)
[2024-04-13] MEDS: LOW STRENGTH ASPIRIN 81 MG PO (09:24)
[2024-04-13] MEDS: VITAMIN C 500 MG PO (09:24)
[2024-04-13] MEDS: CRESTOR 40 MG PO (09:24)
[2024-04-13] MEDS: PLAVIX 75 MG PO (09:24)
[2024-04-13] MEDS: NEURONTIN 100 MG PO ×3 (09:24→21:27)
[2024-04-13] MEDS: LOPRESSOR 12.5 MG PO ×2 (09:24→19:45)
[2024-04-13] MEDS: ProAmatine 5 MG PO (09:24)
[2024-04-13] MEDS: SENOKOT-S 1 TABLET PO ×2 (09:24→19:46)
[2024-04-13] MEDS: NORVASC 2.5 MG PO (09:24)
[2024-04-13] MEDS: FEOSOL 325 MG PO (09:24)
[2024-04-13] MEDS: BACTROBAN 2% OINTMENT 1 APPLIC NASAL ×2 (09:25→19:46)
[2024-04-13] MEDS: NOVOLOG FLEXPEN-MODERATE RESISTANCE 5 UNITS SC (09:25)
--- NOTE | 2024-04-13 10:25 | PTCARENOTE ---
assumed care of pt from previous shift RN, sinus rhythm on tele, VSS. + peripheral pulses, no edema noted. Lungs diminished, coughing and deep breathing encouraged. +bs, tolerating PO intake, voids spontaneously. Surgical sites stable. pt denies
pain. plan of care reviewed and questions encouraged.
--- NOTE | 2024-04-13 11:26 | W.PN.CD ---
Today's Communication / Plan
-
- Wean off pressors
- Switch Dilt to Lopressor.
- Diuresis if tolerated.
- OOB and IS
Impression / Plan
-
CAD status post X 4 (L TRICIA to LAD, G SVG to diagonal, RA 2 OM, GSV to PDA) POD #0
-Off pressors
-OOB to chair
-IV diltiazem - switch to Metoprolol.
-Fluid overloaded - diuresis as tolerated due to BP
Hypertension:
Hypotensive post op
Midodrine started.
Chronic, resume agents when able.
Renal artery arthrosclerosis chronic
Diabetes chronic
Obesity: On Trulicity
Subjective:
Eyes open to name but intubated and sedated
IntraOp LUIS 04/10/2024 CONCLUSIONS
Normal left ventricular systolic function with no wall motion abnormalities.
LVEF 60-65%.
Normal right ventricular systolic function.
The cardiac valves are grossly normal in structure and function.
Grade III atheromatous disease of the aortic arch and descending thoracic
aorta.
Physical Exam
Vital Signs/Labs
Vital Signs
Temp Pulse Resp BP Pulse Ox
99.1 F 69 16 114/86 96
04/13/24 09:08 04/13/24 10:00 04/13/24 09:08 04/13/24 09:08 04/13/24 11:06
04/12/24 04/13/24 04/14/24
06:59 06:59 06:59
Actual Weight 107.9 kg 107.1 kg
04/13/24 04:57
04/13/24 04:57
PT 17.9 Sec (11.4-14.6) H 04/10/24 14:42
INR 1.45 04/10/24 14:42
APTT 28.9 Sec (23.4-35.0) 04/10/24 14:42
Magnesium 2.2 mg/dl (1.6-2.3) 04/13/24 04:57
Physical Exam
Constitutional: No acute distress and Comfortable
EENT: Anicteric and Moist mucous membranes
Cardiovascular: Rhythm & rate is regular and Pedal edema is absent
Respiratory: Respiratory effort normal and Rhonchi Present
GI: Soft, Distention absent and Non tender
Neuro/Psych: Alert, Oriented and AO x 3
Data Reviewed
-
Date of Service: April 13, 2024
Medical Decision Making: Reviewed Test Results, Independent Historian Assessment and Test Interpretation
EKG: Tracing Personally Visualized and interpreted
Echo: Report Reviewed by me
Labs: Labs Reviewed by me
Old Records: Reviewed
Critical Care Time (in minutes): 32
--- NOTE | 2024-04-13 12:05 | CM ---
Chart reviewed. Patient is independent of ADLS, lives alone in a 2nd floor apartment, [address] and then 12 steps to 2nd floor. Patient with friends who live close by who will be checking in on the patient when he returns home. Plan is for the
patient to return home with CT Transitional RN.
--- NOTE | 2024-04-13 12:38 | PTCARENOTE ---
VSS, pt tolerated cardiac rehab, ambulating the wu independently.
[2024-04-13] MEDS: NOVOLOG FLEXPEN-MODERATE RESISTANCE SC (13:27)
[2024-04-13] MEDS: ProAmatine PO (14:13)
[2024-04-13] MEDS: NSS IV (14:32)
[2024-04-13] MEDS: TYLENOL PO (15:35)
--- NOTE | 2024-04-13 17:35 | PTCARENOTE ---
cordis removed, pt tolerated shower
[2024-04-13 17:45] LABS: Glucose - Point of Care 237 mg/dl (70-99)
[2024-04-13] MEDS: NOVOLOG FLEXPEN-MODERATE RESISTANCE 3 UNITS SC (17:51)
--- NOTE | 2024-04-13 20:00 | PTCARENOTE ---
Received pt from [facility]; pt resting comfortably in chair with family in room. pt AAOx4, states pain is 4/10, see MAR. SHAE on monitor. VSS. heart sounds audible, right radial, left ulnar, and b/l DP pulses palpable, trace JOSEPH noted. lungs
diminished at b/l bases, spo2 95% on RA. hypoactive BS x4 quadrants, poor appetite, abdomen soft, non tender, round/obese. pt voiding clear yellow urine without difficulty. surgical sites maintained. PIV maintained. pt assisted back to bed. call
jacinto within reach. will continue to monitor.
[2024-04-13] MEDS: MELATONIN 5 MG PO (21:27)
[2024-04-13 21:34] LABS: Glucose - Point of Care 182 mg/dl (70-99)
--- NOTE | 2024-04-13 23:58 | PTCARENOTE ---
Pt resting comfortably in bed. SB on monitor. VSS. call jacinto within reach. will continue to monitor.
[2024-04-14] VITALS (8 sets, daily range): BP systolic 132–175; BP diastolic 80–98; PULSE 64; O2SAT 98–99; BMI 33.8
--- NOTE | 2024-04-14 04:00 | PTCARENOTE ---
Pt assessment unchanged. lab work drawn and sent. weight obtained. pt's dropped from 107.1kg on 04/13 to 103.6kg today, 04/14. CVPA aware and I will communicate this change to changed of shift.
[2024-04-14 04:12] LABS: Ionized Calcium 1.12 mMOL/L (1.15-1.33)
[2024-04-14 04:45] LABS: Blood Urea Nitrogen 29 mg/dl (9-20); Calcium 8.6 mg/dl (8.4-10.2); Carbon Dioxide 32 mmol/L (22-30); Chloride 99 mmol/L (98-107); Estimated Creatinine Clearance 67 ml/min; Glucose 138 mg/dl (70-99); Magnesium 2.2 mg/dl (1.6-2.3); Potassium 3.8 mmol/L (3.5-5.1); Sodium 138 mmol/L (135-145); eGFR 54.98
[2024-04-14 04:48] LABS: Hematocrit 28.7 % (39.0-52.0); Hemoglobin 9.4 g/dL (13.0-18.0); Mean Corp Hgb Conc. 32.8 g/dL (33.0-37.0); Mean Corpuscular Hgb 27.8 pg (27.0-31.0); Mean Corpuscular Volume 84.9 fL (80.0-94.0); Mean Platelet Volume 10.8 fL (7.4-10.4); Platelet Count 219 10^3/uL (130-400); Red Blood Cell Count 3.38 10^6/uL (4.70-6.10); White Blood Cell Count 9.1 10^3/uL (4.8-10.8)
[2024-04-14] MEDS: CALCIUM GLUCONATE 290 MG IV (05:50)
[2024-04-14] MEDS: TYLENOL 1000 MG PO ×2 (05:50→14:15)
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
[2024-04-14] MEDS: NOVOLOG FLEXPEN-MODERATE RESISTANCE 1 UNITS SC (08:13)
[2024-04-14 08:16] LABS: Glucose - Point of Care 198 mg/dl (70-99)
[2024-04-14] MEDS: SENOKOT-S 1 TABLET PO (08:22)
[2024-04-14] MEDS: VITAMIN C 500 MG PO (08:22)
[2024-04-14] MEDS: NEURONTIN 100 MG PO ×2 (08:22→16:15)
[2024-04-14] MEDS: CRESTOR 40 MG PO (08:22)
[2024-04-14] MEDS: FEOSOL 325 MG PO (08:22)
[2024-04-14] MEDS: PLAVIX 75 MG PO (08:23)
[2024-04-14] MEDS: LOW STRENGTH ASPIRIN 81 MG PO (08:23)
[2024-04-14] MEDS: PROTONIX 40 MG PO (08:23)
[2024-04-14] MEDS: TOPROL XL 25 MG PO (08:23)
[2024-04-14] MEDS: NORVASC 2.5 MG PO ×2 (08:23→12:22)
[2024-04-14] MEDS: LIDOCAINE 4% PATCH 1 PATCH TOPICAL (08:24)
[2024-04-14] MEDS: BACTROBAN 2% OINTMENT 1 APPLIC NASAL (08:24)
--- NOTE | 2024-04-14 08:25 | W.PN.CD ---
Today's Communication / Plan
-
- Stable. Possible discharge
Impression / Plan
-
CAD status post X 4 (L TRICIA to LAD, G SVG to diagonal, RA 2 OM, GSV to PDA) 04/10/24 -POD #3
- Hypotension improved. Off Midodrine
- Metoprolol started
- Fluid overloaded - diuresis as tolerated due to BP
- On ASA/ Plavix, Metoprolol and Amio
Hypertension:
Chronic, resume agents when able.
Renal artery arthrosclerosis chronic
5 x5 mm aneurysm of the anterior communicating artery. No significant intracranial arterial stenosis by CTA 04/06/24
former smoker, DM and CKD
Improve BP control
Diabetes chronic
Obesity: On Trulicity
Subjective:
OOB to chair. Ambulating
IntraOp LUIS 04/10/2024 CONCLUSIONS
Normal left ventricular systolic function with no wall motion abnormalities.
LVEF 60-65%.
Normal right ventricular systolic function.
The cardiac valves are grossly normal in structure and function.
Grade III atheromatous disease of the aortic arch and descending thoracic
aorta.
Physical Exam
Vital Signs/Labs
Vital Signs
Temp Pulse Resp BP Pulse Ox
98.6 F 59 20 151/85 97
04/14/24 08:03 04/14/24 08:03 04/14/24 08:03 04/14/24 08:03 04/14/24 08:03
04/13/24 04/14/24 04/15/24
06:59 06:59 06:59
Actual Weight 107.1 kg 103.6 kg
04/14/24 04:06
04/14/24 04:06
PT 17.9 Sec (11.4-14.6) H 04/10/24 14:42
INR 1.45 04/10/24 14:42
APTT 28.9 Sec (23.4-35.0) 04/10/24 14:42
Magnesium 2.2 mg/dl (1.6-2.3) 04/14/24 04:06
Physical Exam
Constitutional: No acute distress and Comfortable
EENT: Anicteric and Moist mucous membranes
Cardiovascular: Rhythm & rate is regular, Pedal edema is absent and JVD pressure is normal
Respiratory: Respiratory effort normal, Lungs clear to auscul. and Wheeze Absent
GI: Soft, Non tender and Normal bowel sounds
Neuro/Psych: Alert, Oriented and AO x 3
Data Reviewed
-
Date of Service: April 14, 2024
Medical Decision Making: Reviewed Test Results, Test Interpretation and Review of Case with other Provider
EKG: Tracing Personally Visualized and interpreted
Echo: Report Reviewed by me
Labs: Labs Reviewed by me
Old Records: Reviewed
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
[2024-04-14] MEDS: Hygroton 25 MG PO (09:14)
--- NOTE | 2024-04-14 16:29 | PTCARENOTE ---
Discharge paperwork gone over with patient; all questions answered; curtain feller blindstitch removed and IV removed; wheelchair for discharge transport.
== END 2024-04-14 17:43 | disposition home or self-care (01) | DRG 236 ==
LOC: CVICU 04:55
PROVIDERS: Anesthesiology; Nurse Practitioner; Physician Assistant Medical; ADMITTING PHYSICIAN Thoracic Surgery (Cardiothoracic Vascular Surgery); CONSULT PHYSICIAN Internal Medicine Critical Care Medicine; FAMILY PHYSICIAN Family Medicine
PROC: 03BC4ZZ Excision of Left Radial Artery, Percutaneous Endoscopic Approach (ICD-10-PCS; 2024-04-10)
PROC: 5A1221Z Performance of Cardiac Output, Continuous (ICD-10-PCS; 2024-04-10)
PROC: 021109W Bypass Coronary Artery, Two Arteries from Aorta with Autologous Venous Tissue, Open Approach (ICD-10-PCS; 2024-04-10)
PROC: B24BZZ4 Ultrasonography of Heart with Aorta, Transesophageal (ICD-10-PCS; 2024-04-10)
PROC: 02100ZC Bypass Coronary Artery, One Artery from Thoracic Artery, Open Approach (ICD-10-PCS; 2024-04-10)
PROC: 02100AW Bypass Coronary Artery, One Artery from Aorta with Autologous Arterial Tissue, Open Approach (ICD-10-PCS; 2024-04-10)
PROC: 06BP4ZZ Excision of Right Saphenous Vein, Percutaneous Endoscopic Approach (ICD-10-PCS; 2024-04-10)
DX: I25.10 Atherosclerotic heart disease of native coronary artery without angina pectoris (principal); D62 Acute posthemorrhagic anemia; J98.11 Atelectasis; N17.9 Acute kidney failure, unspecified; E11.51 Type 2 diabetes mellitus with diabetic peripheral angiopathy without gangrene; I12.9 Hypertensive chronic kidney disease with stage 1 through stage 4 chronic kidney disease, or unspecified chronic kidney disease; I70.1 Atherosclerosis of renal artery; I71.9 Aortic aneurysm of unspecified site, without rupture; N18.32 Chronic kidney disease, stage 3b; G89.29 Other chronic pain; E11.22 Type 2 diabetes mellitus with diabetic chronic kidney disease; I65.23 Occlusion and stenosis of bilateral carotid arteries; E78.5 Hyperlipidemia, unspecified; R00.1 Bradycardia, unspecified; E66.9 Obesity, unspecified; I67.1 Cerebral aneurysm, nonruptured; E86.1 Hypovolemia; E87.70 Fluid overload, unspecified; I95.81 Postprocedural hypotension; Z68.33 Body mass index [BMI] 33.0-33.9, adult; Z79.4 Long term (current) use of insulin; Z79.82 Long term (current) use of aspirin; Z79.899 Other long term (current) drug therapy; Z87.891 Personal history of nicotine dependence
CPT/HCPCS: 36415; 71045; 71046; 80048; 80053; 81003; 81015; 82248; 82330; 82565; 82805; 82947; 82962; 83036; 83735; 84132; 84302; 84520; 85014; 85018; 85025; 85027; 85049; 85610; 85730; 86850; 86900; 86901; 86920; 87070; 87086; 93005; 93312; 93320; 93325; 94002; 94010